=== PATIENT | male | born 2000 | race African-American/Black ===

== ENCOUNTER 2024-09-14 04:43 | Emergency (ER) | payer OTHER ==
[~2024-09-14] VITALS: Ht 182.9 cm; Wt 90.9 kg
[2024-09-14] MEDS: IBUPROFEN 800 MG TAB PO ONE (06:50)
[2024-09-14 07:11] VITALS: BP 131/83; TEMP 97.1; O2SAT 95
== END 2024-09-14 07:17 | disposition home or self-care (01) ==
LOC: M ED 04:43
DX: S60.411A Abrasion of left index finger, initial encounter (principal); S60.122A Contusion of left index finger with damage to nail, initial encounter; S60.132A Contusion of left middle finger with damage to nail, initial encounter; W23.2XXA Caught, crushed, jammed or pinched between a moving and stationary object, initial encounter; Y92.89 Other specified places as the place of occurrence of the external cause; Y93.89 Activity, other specified; Y99.1 Military activity

== ENCOUNTER 2024-09-19 20:25 | Emergency (ER) | payer OTHER ==
[~2024-09-19] VITALS: Ht 182.9 cm; Wt 90.9 kg
[2024-09-19] MEDS ORDERED: ISOVUE-370 76% 100 ML VIAL As Ordered ONE (21:26)
[2024-09-19 21:37] LABS: BASO # 0.0 10^3/uL (0.0-0.2); BASO % 0.6 % (0.0-1.0); EOS # 0.3 10^3/uL (0.0-0.5); EOS % 4.9 % (0.0-3.0); LYMPH # 3.3 10^3/uL (1.5-5.0); LYMPH % 52.8 % (24.0-44.0); MONO # 0.7 10^3/uL (0.0-0.8); MONO % 11.6 % (2.0-8.0); NEUTROPHILS # 1.9 10^3/uL (1.5-8.5); NEUTROPHILS % 29.9 % (36.0-66.0); PLATELET COUNT, AUTOMATED 258 10^3/uL (150-450)
[2024-09-19] MEDS ORDERED: CEPH500C PO (22:10)
[2024-09-19] MEDS: ceFAZolin SOD 1 GM in DEXTROSE 5% (D5W) ADV/MINI-BAG 50 ML IV ONE (22:30)
[2024-09-19 23:52] VITALS: BP 132/74; TEMP 98.1; O2SAT 99
== END 2024-09-19 23:54 | disposition home or self-care (01) ==
LOC: M ED 20:25
DX: L03.012 Cellulitis of left finger (principal); Z79.2 Long term (current) use of antibiotics
CPT/HCPCS: 73201; 80047; 85025; 96365; 99284; J0690; Q9967